=== PATIENT | male | born 1990 | race Caucasian/White ===

== ENCOUNTER 2017-06-04 02:17 | Emergency (ER) | payer SELFPAY ==
[~2017-06-04] VITALS: Ht 182.8 cm; Wt 82.6 kg
[~2017-06-04 02:17] MED LIST: ANUSOL HC30 GM PO; ANUSOL-HC25 MG R; BACTRIM DS 8001 TA1 PO; CIPRO500 MG PO; CLINDAMYCIN HC150 MG PO; CLINDAMYCIN HC300 MG PO; DOXYCYCLINE HY100 M3 PO; HYDROCODONE BIT1 T11 PO; MOTRIN600 MG PO; MOTRIN800 MG PO; NKHM; TRAMADOL HCL50 MG PO; ULTRAM50 MG PO; VOLTAREN50 M1 PO
[2017-06-04] MEDS ORDERED: CLINDAMYCIN HC300 MG PO (03:04)
[2017-06-04] MEDS ORDERED: Motrin,Rufen800 MG PO (03:04)
== END 2017-06-04 03:33 | disposition home or self-care (01) ==
LOC: ED 02:17
DX: K02.9 Dental caries, unspecified (principal); K04.01 Reversible pulpitis; F17.200 Nicotine dependence, unspecified, uncomplicated; Z86.14 Personal history of Methicillin resistant Staphylococcus aureus infection; Z88.1 Allergy status to other antibiotic agents

== ENCOUNTER 2017-08-15 02:52 | Emergency (ER) | payer SELFPAY ==
[~2017-08-15] VITALS: Ht 185.4 cm; Wt 71.7 kg
[~2017-08-15 02:52] MED LIST changes: +Motrin,Rufen800 MG PO
[2017-08-15] MEDS ORDERED: PENICILLIN-VK500 M1 PO (03:17)
== END 2017-08-15 03:26 | disposition home or self-care (01) ==
LOC: ED 02:52
DX: K04.7 Periapical abscess without sinus (principal); K02.9 Dental caries, unspecified; F17.200 Nicotine dependence, unspecified, uncomplicated; Z88.1 Allergy status to other antibiotic agents

== ENCOUNTER 2017-09-04 02:01 | Emergency (ER) | payer SELFPAY ==
[~2017-09-04] VITALS: Ht 182.8 cm; Wt 70.3 kg
[~2017-09-04 02:01] MED LIST changes: +PENICILLIN-VK500 M1 PO
[2017-09-04 02:52] LABS: BASO # 0.1 10*3/uL (0.0-0.1); BASO % 0.8 % (0.0-1.0); EOS # 0.4 10*3/uL (0.0-0.4); EOS % 5.8 % (1.0-4.0); HEMOGLOBIN 12.8 g/dl (14.0-18.0); LYMPH # 1.9 10*3/uL (1.3-4.4); LYMPH % 25.6 % (27.0-41.0); MEAN CELL VOLUME 88.1 fl (80.0-94.0); MEAN CORPUSCULAR HGB 28.2 pg (27.0-31.0); MEAN PLATELET VOLUME 10.7 fl (9.6-12.3); MONO # 0.6 10*3/uL (0.1-1.0); MONO % 8.2 % (3.0-9.0); NEUT # 4.4 10*3/uL (2.3-7.9); NEUT % 59.5 % (47.0-73.0); PLATELET COUNT AUTOMATED 240 10*3/uL (130-400); RED BLOOD COUNT 4.54 10*6/uL (4.50-5.90); RED CELL DISTRI WIDTH 12.3 % (0-14.5); WHITE BLOOD COUNT 7.5 10*3/uL (4.8-10.8)
[2017-09-04 03:09] LABS: ALBUMIN 3.4 gm/dl (3.1-4.5); ALKALINE PHOSPHATASE 52 U/L (45-117); BUN 10 mg/dl (7-24); CHLORIDE 105 mmol/L (98-107); CREATININE 1.01 mg/dL (0.70-1.30); POTASSIUM 3.5 mmol/L (3.5-5.1); SGOT/AST 24 IU/L (3-35); SGPT/ALT 17 U/L (12-78); SODIUM 143 mmol/L (136-145); TOTAL PROTEIN 6.6 gm/dL (6.4-8.2)
[2017-09-04 03:21] LABS: BILIRUBIN NEGATIVE (NEGATIVE); BLOOD NEGATIVE (NEGATIVE); CLARITY CLEAR (CLEAR); COLOR YELLOW (YELLOW); GLUCOSE NEGATIVE (NEGATIVE); KETONE TRACE (NEGATIVE); LEUKO ESTERASE NEGATIVE (NEGATIVE); NITRITE NEGATIVE (NEGATIVE); SPECIFIC GRAVITY 1.025 (1.005-1.030)
[2017-09-04 03:29] LABS: WBC 0-2 wbc/hpf (0-5)
[2017-09-04 03:30] LABS: URINE AMPHETAMINES > 1000 (1000ng/ml); URINE BARBITURATES < 200 (200ng/ml); URINE BENZODIAZEPINES > 200 (200ng/ml); URINE CANNABINOIDS (THC) < 50 (50ng/ml); URINE COCAINE < 300 (300ng/ml); URINE METHADONE < 300 (300ng/ml); URINE OPIATES > 300 (300ng/ml); URINE PHENCYCLIDINE < 25 (25ng/ml)
== END 2017-09-04 04:51 | disposition home or self-care (01) ==
LOC: ED 02:01
PROVIDERS: Emergency Medicine
DX: R60.0 Localized edema (principal); L27.0 Generalized skin eruption due to drugs and medicaments taken internally; T36.0X5A Adverse effect of penicillins, initial encounter; F17.200 Nicotine dependence, unspecified, uncomplicated; Z88.0 Allergy status to penicillin; Z88.1 Allergy status to other antibiotic agents

== ENCOUNTER 2017-09-17 00:33 | Emergency (ER) | payer SELFPAY ==
[~2017-09-17] VITALS: Ht 182.8 cm; Wt 71.7 kg
[2017-09-17] MEDS ORDERED: SEPTDS PO (00:42)
[2017-09-17] MEDS ORDERED: Motrin,Rufen800 MG PO (00:42)
== END 2017-09-17 01:01 | disposition home or self-care (01) ==
LOC: ED 00:33
DX: L02.412 Cutaneous abscess of left axilla (principal); F17.200 Nicotine dependence, unspecified, uncomplicated; Z86.14 Personal history of Methicillin resistant Staphylococcus aureus infection; Z88.0 Allergy status to penicillin; Z88.1 Allergy status to other antibiotic agents

== ENCOUNTER 2017-12-10 18:26 | Inpatient (IN) | payer SELFPAY ==
[~2017-12-10] VITALS: Ht 182.8 cm; Wt 74.4 kg
[~2017-12-10 18:26] MED LIST changes: +SEPTDS PO
[2017-12-10 18:29] VITALS: BP 122/80
[2017-12-10 19:43] LABS: URINE AMPHETAMINES < 1000 (1000ng/ml); URINE BARBITURATES < 200 (200ng/ml); URINE BENZODIAZEPINES < 200 (200ng/ml); URINE CANNABINOIDS (THC) > 50 (50ng/ml); URINE COCAINE < 300 (300ng/ml); URINE METHADONE < 300 (300ng/ml); URINE OPIATES > 300 (300ng/ml)
[2017-12-10 19:46] LABS: URINE PHENCYCLIDINE < 25 (25ng/ml)
[2017-12-10 20:22] LABS: BASO # 0.1 10*3/uL (0.0-0.1); BASO % 0.7 % (0.0-1.0); EOS # 0.1 10*3/uL (0.0-0.4); EOS % 0.6 % (1.0-4.0); HEMATOCRIT 45.7 % (42.0-52.0); HEMOGLOBIN 14.9 g/dl (14.0-18.0); MEAN CELL VOLUME 89.3 fl (80.0-94.0); MEAN CORPUSCULAR HGB 29.1 pg (27.0-31.0); MEAN CORPUSCULAR HGB CONC 32.6 g/dl (33.0-37.0); MEAN PLATELET VOLUME 11.2 fl (9.6-12.3); MONO # 0.9 10*3/uL (0.1-1.0); MONO % 10.4 % (3.0-9.0); NEUT # 5.7 10*3/uL (2.3-7.9); PLATELET COUNT AUTOMATED 200 10*3/uL (130-400); RED BLOOD COUNT 5.12 10*6/uL (4.50-5.90); RED CELL DISTRI WIDTH 12.4 % (0-14.5); WHITE BLOOD COUNT 8.8 10*3/uL (4.8-10.8)
[2017-12-10 20:40] LABS: ALBUMIN 4.9 gm/dl (3.1-4.5); ALKALINE PHOSPHATASE 48 U/L (45-117); BUN 6 mg/dl (7-24); CHLORIDE 104 mmol/L (98-107); CREATININE 0.83 mg/dL (0.70-1.30); ETHYL ALCOHOL < 3.0 mg/dl (<3); POTASSIUM 3.1 mmol/L (3.5-5.1); SGOT/AST 8 IU/L (3-35); SGPT/ALT 13 U/L (12-78); SODIUM 139 mmol/L (136-145); TOTAL PROTEIN 8.2 gm/dL (6.4-8.2)
[2017-12-11] VITALS: BP 121/74
[2017-12-11 08:00] VITALS: BP 106/82
[2017-12-11 12:00] VITALS: BP 110/80
[2017-12-11 13:15] LABS: BILIRUBIN NEGATIVE (NEGATIVE); BLOOD NEGATIVE (NEGATIVE); CLARITY CLOUDY (CLEAR); COLOR YELLOW (YELLOW); GLUCOSE NEGATIVE (NEGATIVE); KETONE NEGATIVE (NEGATIVE); LEUKO ESTERASE NEGATIVE (NEGATIVE); NITRITE NEGATIVE (NEGATIVE); UROBILINOGEN 0.2 E.U./dl (0.2-1.0)
[2017-12-11 13:31] LABS: BACTERIA 2+; EPITHELIAL CELLS 0-1
[2017-12-11 16:00] VITALS: BP 122/74
[2017-12-11 20:00] VITALS: BP 134/72
[2017-12-12] VITALS: BP 101/62
[2017-12-12 08:00] VITALS: BP 116/77
[2017-12-12 12:00] VITALS: BP 111/66
[2017-12-12 16:00] VITALS: BP 106/64
[2017-12-12 20:00] VITALS: BP 118/64
[2017-12-13] VITALS: BP 130/62
[2017-12-13 07:35] LABS: BASO % 0.3 % (0.0-1.0); EOS # 0.1 10*3/uL (0.0-0.4); EOS % 1.1 % (1.0-4.0); HEMATOCRIT 45.1 % (42.0-52.0); LYMPH # 1.1 10*3/uL (1.3-4.4); LYMPH % 9.6 % (27.0-41.0); MEAN CELL VOLUME 87.9 fl (80.0-94.0); MEAN CORPUSCULAR HGB 29.2 pg (27.0-31.0); MEAN CORPUSCULAR HGB CONC 33.3 g/dl (33.0-37.0); MEAN PLATELET VOLUME 11.3 fl (9.6-12.3); MONO # 0.8 10*3/uL (0.1-1.0); MONO % 6.6 % (3.0-9.0); NEUT # 9.3 10*3/uL (2.3-7.9); PLATELET COUNT AUTOMATED 173 10*3/uL (130-400); RED BLOOD COUNT 5.13 10*6/uL (4.50-5.90); RED CELL DISTRI WIDTH 12.5 % (0-14.5); WHITE BLOOD COUNT 11.3 10*3/uL (4.8-10.8)
[2017-12-13 07:58] LABS: CREATININE 0.83 mg/dL (0.70-1.30)
[2017-12-13 08:00] VITALS: BP 136/72
[2017-12-13] MEDS ORDERED: ROPINIROLE HYD0.5 MG PO (11:39)
[2017-12-13] MEDS ORDERED: DICYCLOMINE HCL20 MG PO (11:39)
[2017-12-13] MEDS ORDERED: ATARAX,VISTARIL50 MG PO (11:39)
[2017-12-13] MEDS ORDERED: ZOFRAN 4 MG ED2 TAB PO (11:39)
[2017-12-13] MEDS ORDERED: METHOCARBAMOL750 M1 PO (11:39)
[2017-12-13 12:00] VITALS: BP 112/64
== END 2017-12-13 15:05 | disposition home or self-care (01) | DRG 897 ==
LOC: ED 18:26 → EDHOLD 18:53 → 5E 18:53
PROVIDERS: Internal Medicine; Internal Medicine Nephrology; Physician Assistant
DX: F11.23 Opioid dependence with withdrawal (principal); F12.10 Cannabis abuse, uncomplicated; D72.810 Lymphocytopenia; E87.6 Hypokalemia; F17.210 Nicotine dependence, cigarettes, uncomplicated; Z86.14 Personal history of Methicillin resistant Staphylococcus aureus infection; Z71.6 Tobacco abuse counseling; Z88.0 Allergy status to penicillin; Z88.8 Allergy status to other drugs, medicaments and biological substances; Z83.3 Family history of diabetes mellitus

== ENCOUNTER 2018-07-24 06:35 | Emergency (ER) | payer OTHER ==
[~2018-07-24] VITALS: Ht 182.8 cm; Wt 78.0 kg
[~2018-07-24 06:35] MED LIST changes: +ATARAX,VISTARIL50 MG PO; +DICYCLOMINE HCL20 MG PO; +METHOCARBAMOL750 M1 PO; +ROPINIROLE HYD0.5 MG PO; +ZOFRAN 4 MG ED2 TAB PO
[2018-07-24] MEDS ORDERED: ESCITALOPRAM OX20 MG PO (06:38)
[2018-07-24] MEDS ORDERED: Motrin,Rufen800 MG PO (08:57)
== END 2018-07-24 09:17 | disposition home or self-care (01) ==
LOC: ED 06:35
DX: S20.212A Contusion of left front wall of thorax, initial encounter (principal); Z88.0 Allergy status to penicillin; Z88.1 Allergy status to other antibiotic agents; Z79.899 Other long term (current) drug therapy; Z87.891 Personal history of nicotine dependence; X58.XXXA Exposure to other specified factors, initial encounter; Y93.89 Activity, other specified; Y92.89 Other specified places as the place of occurrence of the external cause; Y99.8 Other external cause status

== ENCOUNTER 2019-04-14 19:27 | Emergency (ER) | payer SELFPAY ==
[~2019-04-14] VITALS: Ht 182.8 cm; Wt 71.2 kg
[~2019-04-14 19:27] MED LIST changes: +ESCITALOPRAM OX20 MG PO
[2019-04-14 20:18] LABS: CLARITY SL CLOUDY (CLEAR); COLOR STRAW (YELLOW); GLUCOSE NEGATIVE (NEGATIVE); KETONE TRACE (NEGATIVE)
[2019-04-14 20:19] LABS: BILIRUBIN 1+ (NEGATIVE); BLOOD 1+ (NEGATIVE); LEUKO ESTERASE NEGATIVE (NEGATIVE); NITRITE NEGATIVE (NEGATIVE); PH 7.5 (5.0-9.0)
[2019-04-14 20:22] LABS: BACTERIA TRACE; EPITHELIAL CELLS 0-2; MUCOUS TRACE; RBC 0-2 rbc/hpf (0-2); WBC 0-2 wbc/hpf (0-5)
[2019-04-14 20:25] LABS: URINE AMPHETAMINES < 1000 (1000ng/ml); URINE BARBITURATES < 200 (200ng/ml); URINE BENZODIAZEPINES > 200 (200ng/ml); URINE CANNABINOIDS (THC) > 50 (50ng/ml); URINE COCAINE > 300 (300ng/ml); URINE METHADONE < 300 (300ng/ml); URINE OPIATES < 300 (300ng/ml)
[2019-04-14 20:30] LABS: URINE PHENCYCLIDINE < 25 (25ng/ml)
[2019-04-14 20:31] LABS: BASO # 0.1 10*3/uL (0.0-0.1); BASO % 0.6 % (0.0-1.0); EOS # 0.1 10*3/uL (0.0-0.4); EOS % 1.4 % (1.0-4.0); HEMATOCRIT 48.7 % (42.0-52.0); HEMOGLOBIN 16.3 g/dl (14.0-18.0); LYMPH # 1.3 10*3/uL (1.3-4.4); LYMPH % 15.5 % (27.0-41.0); MEAN CELL VOLUME 90.7 fl (80.0-94.0); MEAN CORPUSCULAR HGB 30.4 pg (27.0-31.0); MEAN CORPUSCULAR HGB CONC 33.5 g/dl (33.0-37.0); MEAN PLATELET VOLUME 11.2 fl (9.6-12.3); MONO # 0.6 10*3/uL (0.1-1.0); MONO % 6.8 % (3.0-9.0); NEUT # 6.5 10*3/uL (2.3-7.9); NEUT % 75.5 % (47.0-73.0); PLATELET COUNT AUTOMATED 226 10*3/uL (130-400); RED BLOOD COUNT 5.37 10*6/uL (4.50-5.90); RED CELL DISTRI WIDTH 12.6 % (0-14.5); WHITE BLOOD COUNT 8.7 10*3/uL (4.8-10.8)
[2019-04-14 20:47] LABS: ALKALINE PHOSPHATASE 62 U/L (45-117); BUN 9 mg/dl (7-24); CHLORIDE 107 mmol/L (98-107); CREATININE 0.89 mg/dL (0.70-1.30); LIPASE 97 U/L (73-393); POTASSIUM 3.7 mmol/L (3.5-5.1); SGOT/AST 11 IU/L (3-35); SGPT/ALT 19 U/L (12-78); SODIUM 140 mmol/L (136-145); TOTAL PROTEIN 7.1 gm/dL (6.4-8.2)
== END 2019-04-15 00:44 | disposition home or self-care (01) ==
LOC: ED 19:27
PROVIDERS: Nurse Practitioner Family
DX: K59.00 Constipation, unspecified (principal); F17.200 Nicotine dependence, unspecified, uncomplicated; Z88.0 Allergy status to penicillin; Z88.1 Allergy status to other antibiotic agents; Z79.899 Other long term (current) drug therapy

== ENCOUNTER 2020-04-30 12:00 | Emergency (ER) | payer OTHER ==
[~2020-04-30] VITALS: Ht 182.8 cm; Wt 79.4 kg
[2020-04-30] MEDS ORDERED: ZITHROMAX250 MG PO (14:17)
[2020-04-30] MEDS ORDERED: NAPROSYN500 MG PO (14:17)
== END 2020-04-30 14:21 | disposition home or self-care (01) ==
LOC: ED 12:00
DX: J40 Bronchitis, not specified as acute or chronic (principal); F17.200 Nicotine dependence, unspecified, uncomplicated; Z79.899 Other long term (current) drug therapy; Z88.0 Allergy status to penicillin; Z88.1 Allergy status to other antibiotic agents

== ENCOUNTER 2021-02-16 12:04 | Emergency (ER) | payer OTHER ==
[~2021-02-16] VITALS: Wt 70.3 kg
[~2021-02-16 12:04] MED LIST changes: +NAPROSYN500 MG PO; +ZITHROMAX250 MG PO
[2021-02-16 12:50] LABS: BASO % 0.2 % (0.0-1.0); HEMATOCRIT 54.5 % (42.0-52.0); LYMPH # 0.7 10*3/uL (1.3-4.4); LYMPH % 5.3 % (27.0-41.0); MEAN CELL VOLUME 88.2 fl (80.0-94.0); MEAN CORPUSCULAR HGB 29.8 pg (27.0-31.0); MEAN CORPUSCULAR HGB CONC 33.8 g/dl (33.0-37.0); MONO # 0.7 10*3/uL (0.1-1.0); MONO % 5.6 % (3.0-9.0); NEUT # 11.2 10*3/uL (2.3-7.9); NEUT % 88.7 % (47.0-73.0); PLATELET COUNT AUTOMATED 214 10*3/uL (130-400); RED BLOOD COUNT 6.18 10*6/uL (4.50-5.90); RED CELL DISTRI WIDTH 12.4 % (0-14.5); WHITE BLOOD COUNT 12.6 10*3/uL (4.8-10.8)
[2021-02-16 13:06] LABS: ALBUMIN 4.5 gm/dl (3.1-4.5); BUN 15 mg/dl (7-24); CHLORIDE 99 mmol/L (98-107); CREATININE 1.56 mg/dL (0.70-1.30); LIPASE 109 U/L (73-393); POTASSIUM 3.7 mmol/L (3.5-5.1); SGOT/AST 12 IU/L (3-35); SGPT/ALT 21 U/L (12-78); SODIUM 138 mmol/L (136-145); TOTAL PROTEIN 8.8 gm/dL (6.4-8.2)
[2021-02-16 13:07] LABS: ALKALINE PHOSPHATASE 57 U/L (45-117)
[2021-02-16] MEDS ORDERED: HYDROXYZINE HCL25 MG PO (14:18)
[2021-02-16] MEDS ORDERED: ZOFRAN4 MG PO (14:18)
== END 2021-02-16 14:21 | disposition home or self-care (01) ==
LOC: ED 12:04
PROVIDERS: Physician Assistant
DX: F11.13 Opioid abuse with withdrawal (principal); F17.200 Nicotine dependence, unspecified, uncomplicated; Z88.0 Allergy status to penicillin; Z88.1 Allergy status to other antibiotic agents; Z79.2 Long term (current) use of antibiotics; Z79.899 Other long term (current) drug therapy

== ENCOUNTER 2021-02-17 15:18 | Emergency (ER) | payer OTHER ==
[~2021-02-17] VITALS: Ht 182.8 cm; Wt 70.3 kg
[~2021-02-17 15:18] MED LIST changes: +HYDROXYZINE HCL25 MG PO; +ZOFRAN4 MG PO
== END 2021-02-17 16:16 | disposition home or self-care (01) ==
LOC: ED 15:18
DX: F11.90 Opioid use, unspecified, uncomplicated (principal); R10.9 Unspecified abdominal pain; R11.0 Nausea; F17.200 Nicotine dependence, unspecified, uncomplicated; Z88.0 Allergy status to penicillin; Z88.1 Allergy status to other antibiotic agents; Z79.899 Other long term (current) drug therapy

== ENCOUNTER → 2021-02-19 | Outpatient (CLI) | payer OTHER | END | disposition home or self-care (01) | LOC: COVID19 16:53 | PROVIDERS: ATTEND Podiatrist Foot & Ankle Surgery | DX: U07.1 COVID-19 (principal) ==

== ENCOUNTER 2021-05-20 00:53 | Emergency (ER) | payer OTHER ==
[~2021-05-20] VITALS: Ht 175.2 cm; Wt 61.2 kg
[2021-05-20 01:27] LABS: BASO % 0.5 % (0.0-1.0); EOS # 0.1 10*3/uL (0.0-0.4); EOS % 1.2 % (1.0-4.0); HEMATOCRIT 40.9 % (42.0-52.0); LYMPH # 1.1 10*3/uL (1.3-4.4); LYMPH % 12.6 % (27.0-41.0); MEAN CELL VOLUME 90.3 fl (80.0-94.0); MEAN CORPUSCULAR HGB 30.2 pg (27.0-31.0); MEAN CORPUSCULAR HGB CONC 33.5 g/dl (33.0-37.0); MONO # 0.7 10*3/uL (0.1-1.0); MONO % 8.6 % (3.0-9.0); NEUT # 6.6 10*3/uL (2.3-7.9); NEUT % 76.7 % (47.0-73.0); PLATELET COUNT AUTOMATED 212 10*3/uL (130-400); RED BLOOD COUNT 4.53 10*6/uL (4.50-5.90); RED CELL DISTRI WIDTH 12.6 % (0-14.5); WHITE BLOOD COUNT 8.6 10*3/uL (4.8-10.8)
[2021-05-20 01:40] LABS: BUN 10 mg/dl (7-24); CHLORIDE 99 mmol/L (98-107); CREATININE 0.73 mg/dL (0.70-1.30); POTASSIUM 3.6 mmol/L (3.5-5.1); SODIUM 138 mmol/L (136-145)
== END 2021-05-20 02:05 | disposition home or self-care (01) ==
LOC: ED 00:53
PROVIDERS: Internal Medicine
DX: K64.9 Unspecified hemorrhoids (principal)

== ENCOUNTER 2021-06-23 15:16 | Emergency (ER) | payer OTHER ==
[~2021-06-23] VITALS: Wt 74.8 kg
== END 2021-06-23 15:59 | disposition home or self-care (01) ==
LOC: ED 15:16
DX: F11.90 Opioid use, unspecified, uncomplicated (principal); Z88.0 Allergy status to penicillin; Z88.1 Allergy status to other antibiotic agents; Z79.899 Other long term (current) drug therapy; Z87.891 Personal history of nicotine dependence

== ENCOUNTER 2021-08-20 10:43 | Inpatient (IN) | payer OTHER ==
[~2021-08-20] VITALS: Ht 187.9 cm; Wt 81.4 kg
[~2021-08-20 10:43] MED LIST changes: +PHENERGAN25 M3 PO; +SUBOXONE 8 MG-1 EACH SL
[2021-08-20 10:47] VITALS: BP 133/96
[2021-08-20 11:29] LABS: BILIRUBIN 1+ (Negative); BLOOD Negative (Negative); CLARITY Cloudy (Clear); COLOR Dark Yellow (Yellow); GLUCOSE Negative (Negative); KETONE 1+ (Negative); LEUKO ESTERASE 1+ (Negative); NITRITE Negative (Negative); SPECIFIC GRAVITY >= 1.030 (1.001-1.030)
[2021-08-20 11:29] LABS: BASO # 0.1 10*3/uL (0.0-0.1); BASO % 0.5 % (0.0-1.0); EOS % 0.1 % (1.0-4.0); HEMATOCRIT 49.3 % (42.0-52.0); LYMPH # 1.1 10*3/uL (1.3-4.4); LYMPH % 9.8 % (27.0-41.0); MEAN CELL VOLUME 86.6 fl (80.0-94.0); MEAN CORPUSCULAR HGB CONC 33.5 g/dl (33.0-37.0); MEAN PLATELET VOLUME 10.6 fl (9.6-12.3); MONO # 0.6 10*3/uL (0.1-1.0); MONO % 5.2 % (3.0-9.0); NEUT # 9.2 10*3/uL (2.3-7.9); PLATELET COUNT AUTOMATED 296 10*3/uL (130-400); RED BLOOD COUNT 5.69 10*6/uL (4.50-5.90); RED CELL DISTRI WIDTH 12.8 % (0-14.5)
[2021-08-20 11:45] LABS: BACTERIA 1+; MUCOUS 2+
[2021-08-20 11:46] LABS: ACT PARTIAL THROMBO TIME 28.2 SECONDS (20.0-32.1)
[2021-08-20 11:47] LABS: ALKALINE PHOSPHATASE 56 U/L (45-117); BUN 6 mg/dl (7-24); CHLORIDE 108 mmol/L (98-107); CREATININE 0.84 mg/dL (0.70-1.30); POTASSIUM 3.1 mmol/L (3.5-5.1); SGOT/AST 8 IU/L (3-35); SGPT/ALT 18 U/L (12-78); SODIUM 141 mmol/L (136-145); TOTAL PROTEIN 7.8 gm/dL (6.4-8.2)
[2021-08-20 11:53] LABS: URINE AMPHETAMINES < 1000 (1000ng/ml); URINE BARBITURATES < 200 (200ng/ml); URINE BENZODIAZEPINES < 200 (200ng/ml); URINE CANNABINOIDS (THC) > 50 (50ng/ml); URINE COCAINE < 300 (300ng/ml); URINE METHADONE < 300 (300ng/ml); URINE OPIATES < 300 (300ng/ml)
[2021-08-20 11:56] VITALS: BP 114/94
[2021-08-20 12:00] LABS: URINE PHENCYCLIDINE < 25 (25ng/ml)
[2021-08-20 16:00] VITALS: BP 127/77
[2021-08-20 20:00] VITALS: BP 115/65
[2021-08-21] VITALS: BP 128/82
[2021-08-21 08:00] VITALS: BP 118/82
[2021-08-21 12:00] VITALS: BP 132/88
[2021-08-21 16:00] VITALS: BP 117/71
[2021-08-21 20:00] VITALS: BP 110/70
[2021-08-22] VITALS: BP 119/76
[2021-08-22 08:00] VITALS: BP 118/87
[2021-08-22 12:00] VITALS: BP 118/66
[2021-08-22 16:00] VITALS: BP 111/62
[2021-08-22] MEDS ORDERED: VITAMIN B-1100 M1 PO (16:02)
[2021-08-22] MEDS ORDERED: NATURE'S BLEND F1 MG PO (16:02)
[2021-08-22] MEDS ORDERED: ATARAX,VISTARIL50 MG PO (16:02)
[2021-08-22] MEDS ORDERED: IBUPROFEN600 MG PO (16:02)
[2021-08-22] MEDS ORDERED: DICYCLOMINE HYD20 MG PO (16:02)
[2021-08-22] MEDS ORDERED: METHOCARBAMOL750 M1 PO (16:02)
[2021-08-22] MEDS ORDERED: THERA TABLET400 MCG PO (16:02)
[2021-08-22] MEDS ORDERED: ONDANSETRON HYDR4 M1 PO (16:02)
[2021-08-22 20:00] VITALS: BP 105/70
[2021-08-23] VITALS: BP 110/62
[2021-08-23 08:00] VITALS: BP 121/80
== END 2021-08-23 09:45 | disposition home or self-care (01) | DRG 773 ==
LOC: ED 10:43 → EDHOLD 11:09 → 5E 11:09
PROVIDERS: Emergency Medicine; ADMIT Internal Medicine; ATTEND Internal Medicine
DX: F11.23 Opioid dependence with withdrawal (principal); K08.409 Partial loss of teeth, unspecified cause, unspecified class; F19.10 Other psychoactive substance abuse, uncomplicated; F17.210 Nicotine dependence, cigarettes, uncomplicated; E87.6 Hypokalemia; R73.9 Hyperglycemia, unspecified; F13.139 Sedative, hypnotic or anxiolytic abuse with withdrawal, unspecified; E83.41 Hypermagnesemia; D72.829 Elevated white blood cell count, unspecified; E87.8 Other disorders of electrolyte and fluid balance, not elsewhere classified; Z88.0 Allergy status to penicillin; Z88.8 Allergy status to other drugs, medicaments and biological substances; Z83.3 Family history of diabetes mellitus; Z71.6 Tobacco abuse counseling

== ENCOUNTER 2021-09-25 13:52 | Inpatient (IN) | payer OTHER ==
[~2021-09-25] VITALS: Ht 182.8 cm; Wt 85.0 kg
[~2021-09-25 13:52] MED LIST changes: +DICYCLOMINE HYD20 MG PO; +IBUPROFEN600 MG PO; +NATURE'S BLEND F1 MG PO; +ONDANSETRON HYDR4 M1 PO; +THERA TABLET400 MCG PO; +VITAMIN B-1100 M1 PO
[2021-09-25 14:00] VITALS: BP 134/80
[2021-09-25 14:25] LABS: BASO % 0.3 % (0.0-1.0); EOS # 0.2 10*3/uL (0.0-0.4); EOS % 1.7 % (1.0-4.0); LYMPH # 1.2 10*3/uL (1.3-4.4); LYMPH % 10.6 % (27.0-41.0); MEAN CELL VOLUME 87.7 fl (80.0-94.0); MEAN CORPUSCULAR HGB 29.6 pg (27.0-31.0); MEAN CORPUSCULAR HGB CONC 33.8 g/dl (33.0-37.0); MEAN PLATELET VOLUME 10.4 fl (9.6-12.3); MONO # 0.5 10*3/uL (0.1-1.0); MONO % 4.6 % (3.0-9.0); NEUT # 9.4 10*3/uL (2.3-7.9); NEUT % 82.3 % (47.0-73.0); PLATELET COUNT AUTOMATED 239 10*3/uL (130-400); RED BLOOD COUNT 4.79 10*6/uL (4.50-5.90); RED CELL DISTRI WIDTH 12.5 % (0-14.5); WHITE BLOOD COUNT 11.4 10*3/uL (4.8-10.8)
[2021-09-25 14:44] LABS: ALKALINE PHOSPHATASE 45 U/L (45-117); BUN 6 mg/dl (7-24); CHLORIDE 108 mmol/L (98-107); CREATININE 0.71 mg/dL (0.70-1.30); POTASSIUM 3.6 mmol/L (3.5-5.1); SGOT/AST 9 IU/L (3-35); SGPT/ALT 17 U/L (12-78); SODIUM 143 mmol/L (136-145); TOTAL PROTEIN 6.5 gm/dL (6.4-8.2)
[2021-09-25 14:52] LABS: THYROID STIM HORMONE (HS) 0.477 uIU/ml (0.358-4.75)
[2021-09-25 15:10] LABS: BILIRUBIN Negative (Negative); BLOOD Negative (Negative); CLARITY Turbid (Clear); COLOR Yellow (Yellow); GLUCOSE Negative (Negative); KETONE Trace (Negative); LEUKO ESTERASE 1+ (Negative); NITRITE Negative (Negative)
[2021-09-25 15:16] LABS: BACTERIA 2+; EPITHELIAL CELLS 0-2
[2021-09-25 15:17] LABS: URINE AMPHETAMINES < 1000 (1000ng/ml); URINE BARBITURATES < 200 (200ng/ml); URINE BENZODIAZEPINES < 200 (200ng/ml); URINE CANNABINOIDS (THC) > 50 (50ng/ml); URINE COCAINE < 300 (300ng/ml); URINE METHADONE < 300 (300ng/ml); URINE OPIATES < 300 (300ng/ml)
[2021-09-25 15:18] LABS: URINE PHENCYCLIDINE < 25 (25ng/ml)
[2021-09-25 16:59] VITALS: BP 111/68
[2021-09-25 20:00] VITALS: BP 101/59
[2021-09-26] VITALS: BP 96/67
[2021-09-26 08:00] VITALS: BP 109/68
[2021-09-26 12:00] VITALS: BP 122/68
[2021-09-26 16:00] VITALS: BP 114/71
[2021-09-26 20:00] VITALS: BP 125/77
[2021-09-27] VITALS: BP 118/72
[2021-09-27 08:00] VITALS: BP 98/53
[2021-09-27 12:00] VITALS: BP 106/69
[2021-09-27 16:00] VITALS: BP 100/78
[2021-09-27 20:00] VITALS: BP 114/69
[2021-09-28] VITALS: BP 105/70
[2021-09-28 08:00] VITALS: BP 126/68
== END 2021-09-28 13:03 | disposition home or self-care (01) | DRG 773 ==
LOC: ED 13:52 → EDHOLD 15:12 → 5E 15:12
PROVIDERS: Nurse Practitioner Family; ADMIT Internal Medicine; ATTEND Internal Medicine
DX: F11.23 Opioid dependence with withdrawal (principal); E44.0 Moderate protein-calorie malnutrition; F12.10 Cannabis abuse, uncomplicated; Z20.822 Contact with and (suspected) exposure to COVID-19; R73.9 Hyperglycemia, unspecified; E87.8 Other disorders of electrolyte and fluid balance, not elsewhere classified; D72.829 Elevated white blood cell count, unspecified; F17.210 Nicotine dependence, cigarettes, uncomplicated; F13.10 Sedative, hypnotic or anxiolytic abuse, uncomplicated; Z71.6 Tobacco abuse counseling; Z68.25 Body mass index [BMI] 25.0-25.9, adult; Z88.0 Allergy status to penicillin; Z88.1 Allergy status to other antibiotic agents; Z83.3 Family history of diabetes mellitus; Z81.2 Family history of tobacco abuse and dependence; Z79.899 Other long term (current) drug therapy

== ENCOUNTER 2024-02-26 18:25 | Inpatient (IN) | payer SELFPAY ==
[~2024-02-26] VITALS: Ht 182.8 cm; Wt 63.6 kg
[2024-02-26 18:42] VITALS: BP 126/74
[2024-02-26 19:23] LABS: BASO # 0.1 10*3/uL (0.0-0.1); BASO % 0.3 % (0.0-1.0); EOS # 0.1 10*3/uL (0.0-0.4); EOS % 0.5 % (1.0-4.0); HEMATOCRIT 42.8 % (42.0-52.0); MEAN CELL VOLUME 88.8 fl (80.0-94.0); MEAN CORPUSCULAR HGB 29.3 pg (27.0-31.0); MEAN CORPUSCULAR HGB CONC 32.9 g/dl (33.0-37.0); MEAN PLATELET VOLUME 9.8 fl (9.6-12.3); MONO # 1.1 10*3/uL (0.1-1.0); MONO % 6.9 % (3.0-9.0); NEUT # 12.5 10*3/uL (2.3-7.9); PLATELET COUNT AUTOMATED 228 10*3/uL (130-400); RED BLOOD COUNT 4.82 10*6/uL (4.50-5.90); RED CELL DISTRI WIDTH 12.3 % (0-14.5); WHITE BLOOD COUNT 15.8 10*3/uL (4.8-10.8)
[2024-02-26 19:43] LABS: BUN 9 mg/dl (9-23); CHLORIDE 100 mmol/L (98-107); CPK 139 U/L (34-171); ETHYL ALCOHOL 3.9 mg/dl (<3); POTASSIUM 3.6 mmol/L (3.4-5.1)
[2024-02-26] MEDS ORDERED: SODIUM CHLORIDE 0.9% 1,000 ML IV SCH (20:00)
[2024-02-26 20:07] LABS: BILIRUBIN Negative (Negative); BLOOD Negative (Negative); CLARITY Clear (Clear); COLOR Yellow (Yellow); GLUCOSE Negative (Negative); KETONE Trace (Negative); LEUKO ESTERASE Negative (Negative); NITRITE Negative (Negative); PH 5.5 (4.5-8.0); SPECIFIC GRAVITY >= 1.030 (1.001-1.030)
[2024-02-26 20:14] LABS: URINE AMPHETAMINES Negative (1000ng/ml); URINE BARBITURATES Negative (200ng/ml); URINE BENZODIAZEPINES Negative (200ng/ml); URINE CANNABINOIDS (THC) Negative (50ng/ml); URINE COCAINE Negative (300ng/ml); URINE METHADONE Negative (300ng/ml); URINE OPIATES Positive (300ng/ml); URINE PHENCYCLIDINE Negative (25ng/ml)
[2024-02-26 20:25] LABS: BACTERIA TRACE; MUCOUS 1+; WBC 0-2 wbc/hpf (0-5)
[2024-02-26] MEDS ORDERED: MAGNESIUM SULFATE 100 ML IV ONE (21:00)
[2024-02-26] MEDS ORDERED: FOLIC ACID 1 MG TAB PO ONE (21:00)
[2024-02-26] MEDS ORDERED: IBUPROFEN 600 MG TAB PO PRN (21:35)
[2024-02-26] MEDS ORDERED: BISACODYL 10 MG SUPP R PRN (21:35)
[2024-02-26] MEDS ORDERED: Loperamide Hydrochloride 2 MG CAP PO PRN ×2 (21:35)
[2024-02-26] MEDS ORDERED: NICOTINE POLACRILEX 4 MG GUM PO PRN (21:35)
[2024-02-26] MEDS ORDERED: ACETAMINOPHEN 500 MG TAB PO PRN (21:35)
[2024-02-26] MEDS ORDERED: Nicotine 21 MG PATCH T PRN (21:35)
[2024-02-26] MEDS ORDERED: Ondansetron Hydrochloride 4 MG TAB PO PRN (21:35)
[2024-02-26] MEDS ORDERED: Sennosides A and B 8.6 MG TAB PO PRN (21:35)
[2024-02-26] MEDS ORDERED: MG-AL HYDROXIDE/SIMETICONE 30 ML UDC PO PRN (21:35)
[2024-02-26] MEDS ORDERED: METHOCARBAMOL 750 MG TAB PO PRN (21:40)
[2024-02-26] MEDS ORDERED: hydrOXYzine 50 MG CAP PO PRN (21:40)
[2024-02-26] MEDS ORDERED: Dicyclomine Hydrochloride 20 MG TAB PO PRN (21:40)
[2024-02-26] MEDS ORDERED: diphenhydrAMINE hydrochloride 50 MG/ML VIAL IV PRN (21:40)
[2024-02-26 21:46] VITALS: BP 125/74
[2024-02-26] MEDS ORDERED: Buprenorphine Hydrochloride 2 MG TAB SL SCH (22:00)
[2024-02-26] MEDS ORDERED: Thiamine 200 MG/2 ML VIAL IV SCH (22:00)
[2024-02-26] MEDS ORDERED: GABAPENTIN 300 MG CAP PO SCH (22:00)
[2024-02-26 22:45] VITALS: BP 142/70
[2024-02-27] MEDS ORDERED: Chlordiazepoxide Hydrochlori 25 MG CAP PO SCH
[2024-02-27 08:00] VITALS: BP 146/79
[2024-02-27] MEDS ORDERED: MULTIVITAMIN 1 TAB TAB PO SCH ×2 (10:00)
[2024-02-27] MEDS ORDERED: Enoxaparin Sodium 40 MG/0.4 ML SYR SC SCH (10:00)
[2024-02-27] MEDS ORDERED: Thiamine 100 MG TAB PO SCH (10:00)
[2024-02-27] MEDS ORDERED: FOLIC ACID 1 MG TAB PO SCH (10:00)
[2024-02-27 12:00] VITALS: BP 108/48
[2024-02-27 16:00] VITALS: BP 112/63
[2024-02-27 20:00] VITALS: BP 124/73
[2024-02-27] MEDS ORDERED: Buprenorphine Hydrochloride 2 MG TAB SL SCH (22:00)
[2024-02-28] VITALS: BP 124/68
[2024-02-28 05:28] LABS: ALKALINE PHOSPHATASE 59 U/L (46-116); BUN 9 mg/dl (9-23); CHLORIDE 104 mmol/L (98-107); POTASSIUM 3.5 mmol/L (3.4-5.1); SGPT/ALT 22 U/L (5-49); TOTAL PROTEIN 6.7 gm/dL (6.0-8.0)
[2024-02-28] MEDS ORDERED: Chlordiazepoxide Hydrochlori 25 MG CAP PO SCH (06:00)
[2024-02-28 06:08] LABS: BASO % 0.3 % (0.0-1.0); EOS # 0.1 10*3/uL (0.0-0.4); EOS % 0.8 % (1.0-4.0); HEMATOCRIT 44.2 % (42.0-52.0); MEAN CELL VOLUME 87.9 fl (80.0-94.0); MEAN PLATELET VOLUME 10.3 fl (9.6-12.3); MONO # 0.6 10*3/uL (0.1-1.0); MONO % 5.2 % (3.0-9.0); NEUT # 8.7 10*3/uL (2.3-7.9); NEUT % 78.1 % (47.0-73.0); PLATELET COUNT AUTOMATED 271 10*3/uL (130-400); RED BLOOD COUNT 5.03 10*6/uL (4.50-5.90); RED CELL DISTRI WIDTH 12.4 % (0-14.5); WHITE BLOOD COUNT 11.1 10*3/uL (4.8-10.8)
[2024-02-28 08:00] VITALS: BP 127/73
[2024-02-28 12:00] VITALS: BP 133/69
[2024-02-28 16:00] VITALS: BP 148/74
[2024-02-29] MEDS ORDERED: Chlordiazepoxide Hydrochlori 25 MG CAP PO SCH
== END 2024-02-28 19:58 | disposition left against medical advice (07) | DRG 894 ==
LOC: ED 18:25 → EDHOLD 21:06 → 4E 22:03
PROVIDERS: Internal Medicine; ADMIT Student in an Organized Health Care Education/Training Program; ATTEND Student in an Organized Health Care Education/Training Program
DX: F11.23 Opioid dependence with withdrawal (principal); E87.1 Hypo-osmolality and hyponatremia; R65.10 Systemic inflammatory response syndrome (SIRS) of non-infectious origin without acute organ dysfunction; F13.930 Sedative, hypnotic or anxiolytic use, unspecified with withdrawal, uncomplicated; D72.825 Bandemia; Z53.29 Procedure and treatment not carried out because of patient's decision for other reasons; F13.90 Sedative, hypnotic, or anxiolytic use, unspecified, uncomplicated; F12.91 Cannabis use, unspecified, in remission; F17.210 Nicotine dependence, cigarettes, uncomplicated; R55 Syncope and collapse; R73.9 Hyperglycemia, unspecified; K08.409 Partial loss of teeth, unspecified cause, unspecified class; Z88.0 Allergy status to penicillin; Z88.8 Allergy status to other drugs, medicaments and biological substances; Z91.09 Other allergy status, other than to drugs and biological substances; Z83.3 Family history of diabetes mellitus; Z81.2 Family history of tobacco abuse and dependence; Z86.14 Personal history of Methicillin resistant Staphylococcus aureus infection